=== PATIENT | female | born 1975 | race Caucasian/White ===

== ENCOUNTER → 2018-08-31 | Outpatient (CLI) | payer MEDICAID, OTHER ==
--- NOTE | 2018-08-31 12:50 | KCIC ---
MR of the right shoulder HISTORY: Right shoulder pain in recent weeks. Repetitive use. TECHNIQUE: Routine multiplanar sequences are obtained. FINDINGS: Mild degenerative changes at the AC joint. There is mild rotator cuff tendinosis. Linear tear of the anterior supraspinatus tendon involves most of the width of the tendon. On coronal series 6, image 10, this appears to be full thickness without retraction. No large tear is seen. Measures about 1 cm AP diameter. Subscapularis tendon is intact. No significant subdeltoid bursal effusion or joint effusion. No evidence of labral tear or para labral cyst. No acute articular cartilage defect. The biceps tendon is intact. No bone destruction or acute fracture. No acute soft tissue abnormality. IMPRESSION: Small linear but probably full-thickness tear across the anterior supraspinatus footprint seen on 2 coronal slices. No significant retraction. Electronically signed by: Jerad Mojica MD (08/31/2018 12:47 PM) [facility]
== END | disposition home or self-care (01) ==
LOC: KCIC MRI 10:59
PROVIDERS: ATTEND Registered Nurse
DX: S46.011A Strain of muscle(s) and tendon(s) of the rotator cuff of right shoulder, initial encounter (principal); M19.011 Primary osteoarthritis, right shoulder; X58.XXXA Exposure to other specified factors, initial encounter; Y93.89 Activity, other specified; Y92.89 Other specified places as the place of occurrence of the external cause; Y99.8 Other external cause status
CPT/HCPCS: 73221